=== PATIENT | male | born 1975 | race Caucasian/White ===

== ENCOUNTER 2019-12-20 19:54 | Emergency (ER) | payer OTHER ==
[2019-12-20] MEDS ORDERED: DIPH/PERTUSS(ACELL)/TETANUS VAC/PF 0.5 ML SYR (>=10YO) IM ONE (20:22)
--- NOTE | 2019-12-20 20:25 | ER Document Report ---
ED Medical Screen (RME) - General Chief Complaint: Laceration Stated Complaint: LEFT HAND LACERATION Time Seen by Provider: 12/20/19 20:22 Mode of Arrival: Ambulatory Information source: Patient Notes: 44-year-old male presented to ED for complaint of laceration to the middle finger. He states he cut it with a knife about 1930 this evening. He states his pain is about a 2 out of 5. He states he was cutting a small branch and new better than to do this but accidentally cut himself. He is a captain in the fire department. He states he does not know when his last tetanus was so he will be getting a tetanus shot. I have spoken to the charge nurse she said she can get him in a room soon so he will be seen by another for sutures. I have greeted and performed a rapid initial assessment of this patient. A comprehensive ED assessment and evaluation of the patient, analysis of test results and completion of medical decision making process will be conducted by an additional ED providers. - Related Data Home Medications: trazadone, Past Medical History - Social History Frequency of alcohol use: Rare Drug Abuse: None Physical Exam - Vital signs Vitals: Temp Pulse Resp BP Pulse Ox 98.7 F 66 14 120/76 98 12/20/19 20:10 12/20/19 20:10 12/20/19 20:10 12/20/19 20:10 12/20/19 20:10 Course - Vital Signs Vital signs: Temp Pulse Resp BP Pulse Ox 98.7 F 66 14 120/76 98 12/20/19 20:11 12/20/19 20:10 12/20/19 20:10 12/20/19 20:10 12/20/19 20:10
[2019-12-20] MEDS ORDERED: LIDOCAINE 1% INJ-PF (10 MG/ML) 30 ML SDV INJ ONE (20:45)
--- NOTE | 2019-12-20 20:46 | ER Document Report ---
HPI - HPI Time Seen by Provider: 12/20/19 20:22 Pain Level: 2 Context: Patient is a 44-year-old male that comes emergency department for chief complaint of laceration to the left middle finger. Patient states that he accidentally cut it with a knife while he was trying to cream a small branch. The laceration is over the dorsal aspect of the middle finger, happened about 1930 this evening. Patient denies any other wounds or any other concerns. Patient does not have an up-to-date tetanus, he states he is not a diabetic, denies blood thinners. Past Medical History - General Information source: Patient - Social History Smoking Status: Never Smoker Frequency of alcohol use: Rare Drug Abuse: None Lives with: Family Family History: Reviewed & Not Pertinent Patient has homicidal ideation: No - Medical History Medical History: Negative Surgical Hx: Negative - Immunizations Immunizations up to date: Yes Hx Diphtheria, Pertussis, Tetanus Vaccination: Yes Vertical Provider Document - CONSTITUTIONAL General Appearance: WD/WN, No Apparent Distress - HEENT HEENT: Atraumatic, Normal ENT Exam, Normocephalic - NECK Neck: Normal Inspection - RESPIRATORY Respiratory: Breath Sounds Normal, No Respiratory Distress - CARDIOVASCULAR Cardiovascular: Regular Rate, Regular Rhythm - GI/ABDOMEN Gastrointestinal: Abdomen Soft, Abdomen Non-Tender. negative: Abdomen Tender - BACK Back: Normal Inspection - MUSCULOSKELETAL/EXTREMETIES Musculoskeletal/Extremeties: MAEW, FROM, Tender - There is a 2 cm angled but linear laceration over the dorsal aspect of the left third digit between the DIP and PIP along the side of the finger. Wound is partial-thickness and easily explored. Full range of motion of the finger, normal strength against resistance in flexion and extension, normal distal neurovascular exam, normal hand exam otherwise. - NEURO Level of Consciousness: Awake, Alert, Appropriate Motor/Sensory: No Motor Deficit, No Sensory Deficit - DERM Integumentary: Warm, Dry, No Rash Course - Re-evaluation Re-evalutation: Patient's exam shows a approximately 2 cm linear angled laceration between the PIP and DIP of the left dorsal middle finger. Wound is partial-thickness, easily explored, no evidence of tendon or nerve injury, no evidence of large vessel injury. Area was cleaned very thoroughly, closed, dressed. Discussed care, follow-up, return precautions. Patient states understanding and agreement. - Vital Signs Vital signs: Temp Pulse Resp BP Pulse Ox 98.7 F 66 14 120/76 98 12/20/19 20:11 12/20/19 20:10 12/20/19 20:10 12/20/19 20:10 12/20/19 20:10 Procedures - Laceration/Wound Repair Left third digit Wound length (cm): 2 Wound's Depth, Shape: Linear Laceration pre-procedure: Sterile PPE donned, Sterile drapes applied, Shur-Clens applied Anesthetic type: 1% Lidocaine Volume Anesthetic (mLs): 3 Wound explored: Clean, No foreign body removed Irrigated w/ Saline (mLs): 100 Wound Repaired With: Sutures Suture Size/Type: 5:0, Ethilon Number of Sutures: 5 Layer Closure?: No Post-procedure wound care: Sterile dressing applied Post-procedure NV exam normal: Yes Complications: No Discharge - Discharge Clinical Impression: Finger laceration Qualifiers: Encounter type: initial encounter Finger: middle finger Damage to nail status: without damage Foreign body presence: without foreign body Laterality: left Qualified Code(s): S61.213A - Laceration without foreign body of left middle finger without damage to nail, initial encounter Condition: Stable Disposition: HOME, SELF-CARE Additional Instructions: The wound was repaired with sutures. Keep clean, clean with soap and water, dab dry, avoid soaking or scrubbing. You can apply thin film of topical antibiotic. Sutures need to be removed in about 7 days at a medical facility. Return sooner for any concerning symptoms including signs of infection such as developing pain, swelling, redness, discolored discharge, fever, or any other concerning symptoms. Referrals: AMANDA MILLS MD [Primary Care Provider] - Follow up as needed
[2019-12-20 22:08] VITALS: BP 130/75
== END 2019-12-20 22:04 | disposition home or self-care (01) ==
LOC: ER 19:54
PROC: 0HQGXZZ Repair Left Hand Skin, External Approach (ICD-10-PCS; principal; 2019-12-20)
DX: S61.213A Laceration without foreign body of left middle finger without damage to nail, initial encounter (principal); W26.0XXA Contact with knife, initial encounter; Z23 Encounter for immunization
CPT/HCPCS: 99283; 90471; 90715; 12001; J3490